=== PATIENT | female | born 1970 | race American Indian/Alaskan Native ===

== ENCOUNTER 2017-03-12 13:44 | Emergency (ER) | payer MEDICAID, OTHER ==
[2017-03-12 13:59] VITALS: BP 138/84
[2017-03-12] MEDS ORDERED: Lactated Ringers 1,000 ML IV ONE (14:16)
[2017-03-12] MEDS ORDERED: Ondansetron 4 MG/2 ML SDV IVPUSH ONE (14:16)
[2017-03-12] MEDS ORDERED: Sodium Chloride 0.9% 10 ML Syringe FLUSH PRN (14:16)
[2017-03-12] MEDS ORDERED: Pantoprazole 40 MG Vial IVPUSH ONE (14:17)
--- NOTE | 2017-03-12 14:22 | EDM.PDOCBH ---
ED HPI GENERAL MEDICAL PROBLEM - General Chief Complaint: Drug or Alcohol Abuse Stated Complaint: HEART Time Seen by Provider: 03/12/17 13:45 Source of Information: Reports: Patient, RN, RN Notes Reviewed History Limitations: Reports: No Limitations - History of Present Illness INITIAL COMMENTS - FREE TEXT/NARRATIVE: Patient presents to the ED at [facility] complaining of chest pain and severe nausea and vomiting. Symptoms started about 5 hours ago. Patient states her last drink of alcohol was 10 hours ago. Patient states she has been drinking very heavily everyday for the past 30 days. Patient has a long standing history of drug and alcohol abuse. Patient denies any SOB. Patient states her chest pain feels sharp and burning in the mid sternal area. Patient complains of abdominal pain from the vomiting. She is not sure what the vomitus looked like. Otherwise, no other symptoms. Onset: Today, Sudden Onset Date: 03/12/17 - Related Data Allergies Allergy/AdvReac Type Severity Reaction Status Date / Time naproxen [From Aleve] Allergy Nausea Verified 03/12/17 14:04 Home Meds: Home Meds Escitalopram [Lexapro] 10 mg PO DAILY 03/12/17 [History] Mirtazapine 15 mg PO BEDTIME 03/12/17 [History] OLANZapine [Olanzapine] 5 mg PO DAILY 03/12/17 [History] Ondansetron HCl [Zofran] 1 tab PO Q8H PRN #30 tablet 03/12/17 [Rx] Sulfamethoxazole/Trimethoprim [Bactrim Ds Tablet] 1 each PO BID 03/12/17 [ History] Past Medical History Respiratory History: Reports: Asthma MOLDER WAX BALL History: Reports: Musculoskeletal History: Reports: Fracture Psychiatric History: Reports: Addiction - Infectious Disease History Infectious Disease History: Reports: Chicken Pox, Shingles - Past Surgical History GI Surgical History: Reports: Appendectomy Female Surgical History: Reports: Section Social & Family History - Family History Family Medical History: Noncontributory - Tobacco Use Smoking Status *Q: Unknown Ever Smoked Years of Tobacco use: 40 Packs/Tins Daily: 1 - Caffeine Use Caffeine Use: Reports: None - Alcohol Use Days Per Week of Alcohol Use: 7 Number of Drinks Per Day: 12 Total Drinks Per Week: 84 - Recreational Drug Use Recreational Drug Use: No ED ROS GENERAL - Review of Systems Review Of Systems: See Below Constitutional: Reports: Chills, Weakness, Decreased Appetite. Denies: Fever Respiratory: Denies: Shortness of Breath, Cough Cardiovascular: Reports: Chest Pain. Denies: Palpitations GI/Abdominal: Reports: Abdominal Pain, Decreased Appetite, Nausea, Vomiting. Denies: Diarrhea Skin: Reports: No Symptoms Neurological: Reports: No Symptoms. Denies: Dizziness, Headache ED EXAM, BEHAVIORAL HEALTH - Physical Exam Exam: See Below Exam Limited By: Uncooperative General Appearance: Alert, No Apparent Distress Respiratory/Chest: No Respiratory Distress, Lungs Clear, Decreased Breath Sounds Cardiovascular: Normal Peripheral Pulses, Tachycardia GI/Abdominal: Normal Bowel Sounds, Soft, Tender (epigastric) Neurological: Alert Psychiatric: Agitated Skin Exam: Warm, Dry, Intact, Normal color, No rash COURSE, BEHAVIORAL HEALTH COMP - Course Vital Signs: Last Vital Signs Temp 36.4 C 03/12/17 13:45 Pulse 101 H 03/12/17 13:45 Resp 24 H 03/12/17 13:45 BP 138/84 03/12/17 13:45 Pulse Ox 96 03/12/17 13:45 Orders, Labs, Meds: Active Orders 24 hr Category Date Time Status EKG 12 Lead [EKG Documentation Completion] [RC] STAT Care 03/12/17 14:22 Ordered CARBOXY-THC BY GC/MS Stat Lab 03/12/17 14:35 Received Sodium Chloride 0.9% [Saline Flush] Med 03/12/17 14:16 Active 10 ml FLUSH ASDIRECTED PRN Peripheral IV Insertion Adult [OM.PC] Routine Oth 03/12/17 14:16 Ordered Medication Orders Sodium Chloride (Saline Flush) 10 ml FLUSH ASDIRECTED PRN PRN Reason: Keep Vein Open Laboratory Tests 03/12/17 03/12/17 03/12/17 Range/Units 14:30 14:30 14:35 WBC 8.4 (4.0-10.0) x10^3/uL RBC 4.36 (4.00-5.50) x10^6/uL Hgb 13.7 (12.0-16.0) g/dL Hct 39.2 (33.0-47.0) % MCV 89.9 (78.0-93.0) fL MCH 31.4 (26.0-32.0) pg MCHC 34.9 (32.0-36.0) g/dL RDW Coeff of Rosanne 12.6 (10.0-15.0) % Plt Count 144 (130-400) x10^3/uL Neut % (Auto) 76.1 (50.0-80.0) % Lymph % (Auto) 17.2 L (25.0-50.0) % [place] % (Auto) 6.1 (2.0-11.0) % Eos % (Auto) 0.1 (0.0-4.0) % Baso % (Auto) 0.5 (0.2-1.2) % Sodium 142 (136-145) mmol/L Potassium 3.5 (3.5-5.1) mmol/L Chloride 101 (98-107) mmol/L Carbon Dioxide 24 (21-32) mmol/L BUN 10 (7-18) mg/dL Creatinine 0.7 (0.55-1.02) mg/dL Est Cr Clr Drug Dosing TNP Estimated GFR (MDRD) > 60 Glucose 120 H (74-106) mg/dL Calcium 8.0 L (8.5-10.1) mg/dL Corrected Calcium 8.24 L (8.5-10.1) mg/dL Total Bilirubin 0.5 (0.2-1.0) mg/dL AST 74 H (15-37) U/L ALT 36 (14-59) U/L Alkaline Phosphatase 166 H (46-116) U/L Creatine Kinase 231 H* (26-192) U/L Creatine Kinase Index 0.4 (0.0-4.0) % CK-MB (CK-2) 1.0 (0.0-3.6) ng/mL Troponin I 0.021 (<=0.056) ng/mL Total Protein 8.2 (6.4-8.2) g/dL Albumin 3.7 (3.4-5.0) g/dL Globulin 4.5 g/dL Albumin/Globulin Ratio 0.82 Urine Color (YELLOW) Urine Appearance (CLEAR) Urine pH (5.0-8.0) Ur Specific Leopold Urine Protein (NEGATIVE) mg/dL Urine Glucose (UA) (NEGATIVE) mg/dL Urine Ketones (NEGATIVE) mg/dL Urine Occult Blood (NEGATIVE) Urine Nitrite (NEGATIVE) Urine Bilirubin (NEGATIVE) Urine Urobilinogen (0.2) EU/dL Ur Leukocyte Esterase (NEGATIVE) Urine RBC (NOT SEEN) /HPF Urine WBC (NOT SEEN) /HPF Ur Squamous Epith Cells (NEGATIVE) /HPF Urine Bacteria (NEGATIVE) /HPF Urine Mucus (NEGATIVE) /LPF Urine Opiates Screen Negative (NEGATIVE) Ur Buprenorphine Scrn Negative (NEGATIVE) Ur Oxycodone Screen Negative (NEGATIVE) Urine Methadone Screen Negative (NEGATIVE) Ur Barbiturates Screen Negative (NEGATIVE) Ur Tricyclics Screen Negative (NEGATIVE) Ur Amphetamine Screen Negative (NEGATIVE) U Methamphetamines Scrn Negative (NEGATIVE) Urine MDMA Screen Negative (NEGATIVE) U Benzodiazepines Scrn Negative (NEGATIVE) U Cocaine Metab Screen Negative (NEGATIVE) U Marijuana (THC) Screen Positive H (NEGATIVE) Ethyl Alcohol 189 H (0-3) mg/dL 03/12/17 Range/Units 14:35 WBC (4.0-10.0) x10^3/uL RBC (4.00-5.50) x10^6/uL Hgb (12.0-16.0) g/dL Hct (33.0-47.0) % MCV (78.0-93.0) fL MCH (26.0-32.0) pg MCHC (32.0-36.0) g/dL RDW Coeff of Rosanne (10.0-15.0) % Plt Count (130-400) x10^3/uL Neut % (Auto) (50.0-80.0) % Lymph % (Auto) (25.0-50.0) % [place] % (Auto) (2.0-11.0) % Eos % (Auto) (0.0-4.0) % Baso % (Auto) (0.2-1.2) % Sodium (136-145) mmol/L Potassium (3.5-5.1) mmol/L Chloride (98-107) mmol/L Carbon Dioxide (21-32) mmol/L BUN (7-18) mg/dL Creatinine (0.55-1.02) mg/dL Est Cr Clr Drug Dosing Estimated GFR (MDRD) Glucose (74-106) mg/dL Calcium (8.5-10.1) mg/dL Corrected Calcium (8.5-10.1) mg/dL Total Bilirubin (0.2-1.0) mg/dL AST (15-37) U/L ALT (14-59) U/L Alkaline Phosphatase (46-116) U/L Creatine Kinase (26-192) U/L Creatine Kinase Index (0.0-4.0) % CK-MB (CK-2) (0.0-3.6) ng/mL Troponin I (<=0.056) ng/mL Total Protein (6.4-8.2) g/dL Albumin (3.4-5.0) g/dL Globulin g/dL Albumin/Globulin Ratio Urine Color Yellow (YELLOW) Urine Appearance Clear (CLEAR) Urine pH 7.0 (5.0-8.0) Ur Specific Leopold 1.025 Urine Protein 100 H (NEGATIVE) mg/dL Urine Glucose (UA) Negative (NEGATIVE) mg/dL Urine Ketones Negative (NEGATIVE) mg/dL Urine Occult Blood Small H (NEGATIVE) Urine Nitrite Negative (NEGATIVE) Urine Bilirubin Negative (NEGATIVE) Urine Urobilinogen 0.2 (0.2) EU/dL Ur Leukocyte Esterase Negative (NEGATIVE) Urine RBC 5-10 H (NOT SEEN) /HPF Urine WBC 0-5 (NOT SEEN) /HPF Ur Squamous Epith Cells Few H (NEGATIVE) /HPF Urine Bacteria Few H (NEGATIVE) /HPF Urine Mucus Moderate H (NEGATIVE) /LPF Urine Opiates Screen (NEGATIVE) Ur Buprenorphine Scrn (NEGATIVE) Ur Oxycodone Screen (NEGATIVE) Urine Methadone Screen (NEGATIVE) Ur Barbiturates Screen (NEGATIVE) Ur Tricyclics Screen (NEGATIVE) Ur Amphetamine Screen (NEGATIVE) U Methamphetamines Scrn (NEGATIVE) Urine MDMA Screen (NEGATIVE) U Benzodiazepines Scrn (NEGATIVE) U Cocaine Metab Screen (NEGATIVE) U Marijuana (THC) Screen (NEGATIVE) Ethyl Alcohol (0-3) mg/dL Medications Generic Name Dose Route Start Last Admin Trade Name Freq PRN Reason Stop Dose Admin Sodium Chloride 10 ml 03/12/17 14:16 Saline Flush FLUSH ASDIRECTED PRN Keep Vein Open Discontinued Medications Generic Name Dose Route Start Last Admin Trade Name Freq PRN Reason Stop Dose Admin Lactated Ringer's 1,000 mls @ 999 mls/hr 03/12/17 14:16 03/12/17 14:33 Ringers, Lactated IV 03/12/17 15:16 999 mls/hr ONETIME ONE Administration Ondansetron HCl 4 mg 03/12/17 14:16 03/12/17 14:33 Zofran IVPUSH 03/12/17 14:17 4 mg ONETIME ONE Administration Pantoprazole Sodium 40 mg 03/12/17 14:17 03/12/17 14:34 Protonix Iv IVPUSH 03/12/17 14:18 40 mg ONETIME ONE Administration Departure - Departure Time of Disposition: 15:41 Disposition: Home, Self-Care 01 Condition: Fair Clinical Impression: Cannabis abuse Alcohol intoxication Qualifiers: Complication of substance-induced condition: uncomplicated Qualified Code(s): F10.920 - Alcohol use, unspecified with intoxication, uncomplicated Nausea & vomiting Qualifiers: Vomiting type: unspecified Vomiting Intractability: non-intractable Qualified Code(s): R11.2 - Nausea with vomiting, unspecified - Discharge Information Prescriptions: Ondansetron HCl [Zofran] 1 tab PO Q8H PRN #30 tablet PRN Reason: Nausea/Vomiting Instructions: Alcohol Use Disorder, Alcohol Intoxication, [id number] Forms: ED Department Discharge Additional Instructions: 1. Stay well hydrated and rest 2. Drink LOTS of water 3. Stop drinking alcohol 4. Avoid smoking pot 5. Take nausea medication only as needed 6. See your Primary to get help with treatment 7. Call with any questions/concerns - Problem List Review Problem List Initiated/Reviewed/Updated: Yes - My Orders Last 24 Hours: My Active Orders 03/12/17 14:16 Sodium Chloride 0.9% [Saline Flush] 10 ml FLUSH ASDIRECTED PRN Peripheral IV Insertion Adult [OM.PC] Routine 03/12/17 14:22 EKG 12 Lead [EKG Documentation Completion] [RC] STAT 03/12/17 14:35 CARBOXY-THC BY GC/MS Stat - Assessment/Plan Last 24 Hours: My Active Orders 03/12/17 14:16 Sodium Chloride 0.9% [Saline Flush] 10 ml FLUSH ASDIRECTED PRN Peripheral IV Insertion Adult [OM.PC] Routine 03/12/17 14:22 EKG 12 Lead [EKG Documentation Completion] [RC] STAT 03/12/17 14:35 CARBOXY-THC BY GC/MS Stat
[2017-03-12 15:25] LABS: CHLORIDE,CL 101 mmol/L (98-107); SODIUM,NA 142 mmol/L (136-145)
== END 2017-03-12 16:00 | disposition home or self-care (01) ==
LOC: VM.ED 13:44
DX: F10.120 Alcohol abuse with intoxication, uncomplicated (principal); F12.10 Cannabis abuse, uncomplicated; R11.2 Nausea with vomiting, unspecified; Z88.8 Allergy status to other drugs, medicaments and biological substances; Y90.6 Blood alcohol level of 120-199 mg/100 ml
CPT/HCPCS: 36415; 80053; 80305; 80349; 81001; 82550; 82553; 84484; 85025; 96361; 96374; 96375; 99284; C9113; G0480; J2405; J7120; 93005